=== PATIENT | female | born 1975 ===

== ENCOUNTER 2017-05-21 08:15 | Inpatient (IN) | payer OTHER ==
[~2017-05-21] VITALS: Ht 132.1 cm; Wt 5.0 kg
[2017-05-27] MEDS ORDERED: IBUPROFEN800 MG PO (07:32)
[2017-05-27] MEDS ORDERED: Mylicon 125MG PO (07:32)
[2017-05-27] MEDS ORDERED: POLY119PG PO (07:32)
[2017-05-27] MEDS ORDERED: GABAPENTIN600 MG PO (07:32)
== END 2017-05-27 08:26 | disposition home or self-care (01) | DRG 743 ==
LOC: ADM 08:15 → EDSTATUS 08:15 → OB/GYN 05-25 05:10 → O/R 05-25 05:10 → SURG 05-25 07:00 → OB/GYN 05-25 11:20
PROVIDERS: Obstetrics & Gynecology
PROC: 0UT70ZZ Resection of Bilateral Fallopian Tubes, Open Approach (ICD-10-PCS; 2017-05-25)
PROC: 0UT90ZZ Resection of Uterus, Open Approach (ICD-10-PCS; principal; 2017-05-25 07:00)
DX: D25.1 Intramural leiomyoma of uterus (principal); N93.8 Other specified abnormal uterine and vaginal bleeding; D50.0 Iron deficiency anemia secondary to blood loss (chronic)